=== PATIENT | female | born 1990 | race American Indian/Alaskan Native ===

== ENCOUNTER 2017-05-21 19:04 | Emergency (ER) | payer OTHER ==
[2017-05-21 23:07] LABS: Bilirubin,Urine NEG (Negative); Blood,Urine LG (Negative); Ketones,Urine NEG (Negative); Leukocyte Esterase,Urine SM (Negative); Mucus,Urine FEW /HPF; Nitrite,Urine NEG (Negative); Urobilinogen,Urine < 2.0 mg/dL (<2.0)
[2017-05-21 23:08] LABS: RBC,Urine > 182.0 /HPF (0.0-6.0)
[2017-05-22 00:06] VITALS: BP 122/70
[2017-05-22] MEDS ORDERED: ROCEPHIN IM ONE (02:11)
[2017-05-22] MEDS ORDERED: XYLOCAINE 1% MPF 5 mL INFILTRATI ONE (02:11)
[2017-05-22] MEDS ORDERED: ZITHROMAX PO ONE (02:11)
--- NOTE | 2017-05-22 02:17 | Emergency Department Report ---
ED Female HPI - General Chief complaint: Urogenital-Female Stated complaint: Pelvic pain Source: patient Mode of arrival: Ambulatory Limitations: No Limitations - History of Present Illness Initial comments: 26 year old female presents to ED with vaginal bleeding, vaginal discharge and pelvic pain x3-4 days. patient states she is sexually active with no protection and would like to be treated for G/C STD during ED visit today. patient is stable, neurologically intact and in no acute distress. MD Complaint: vaginal discharge, pelvic pain, possible STD -: Gradual, days(s) (4) Location: suprapubic Radiation: non-radiating Severity: mild Quality: sharp, burning Are you Now?: No Associated Symptoms: vaginal discharge, vaginal bleeding. denies: abdominal pain, nausea/vomiting, fever/chills, dysuria - Related Data Sexually active: Yes Previous Rx's Medication Instructions Recorded Last Taken Type Sulfamethoxazole/Trimethoprim 1 each PO BID #6 tablet 05/22/17 Unknown Rx [Bactrim DS TAB] metroNIDAZOLE [Flagyl] 500 mg PO Q12HR #14 tab 05/22/17 Unknown Rx Allergies Allergy/AdvReac Type Severity Reaction Status Date / Time No Known Allergies Allergy Unverified 05/21/17 19:29 ED Review of Systems ROS: Stated complaint: ABD PAIN Other details as noted in HPI Constitutional: denies: chills, fever Eyes: denies: eye pain, eye discharge, vision change ENT: denies: ear pain, throat pain Respiratory: denies: cough, shortness of breath, wheezing Cardiovascular: denies: chest pain, palpitations Endocrine: no symptoms reported Gastrointestinal: denies: abdominal pain, nausea, diarrhea Genitourinary: discharge, abnormal menses Musculoskeletal: denies: back pain, joint swelling, arthralgia Skin: denies: rash, lesions Neurological: denies: headache, weakness, numbness, paresthesias, confusion, abnormal gait, vertigo Psychiatric: denies: anxiety, depression Hematological/Lymphatic: denies: easy bleeding, easy bruising ED Past Medical Hx - Social History Smoking Status: Never Smoker Substance Use Type: Alcohol - Medications Home Medications: Home Medications Medication Instructions Recorded Confirmed Last Taken Type Sulfamethoxazole/Trimethoprim 1 each PO BID #6 tablet 05/22/17 Unknown Rx [Bactrim DS TAB] metroNIDAZOLE [Flagyl] 500 mg PO Q12HR #14 tab 05/22/17 Unknown Rx ED Physical Exam - General Limitations: No Limitations General appearance: alert, in no apparent distress - Head Head exam: Present: atraumatic, normocephalic - Eye Eye exam: Present: normal appearance - ENT ENT exam: Present: mucous membranes moist - Neck Neck exam: Present: normal inspection - Respiratory Respiratory exam: Present: normal lung sounds bilaterally. Absent: respiratory distress - Cardiovascular Cardiovascular Exam: Present: regular rate, normal rhythm. Absent: systolic murmur, diastolic murmur, rubs, gallop - GI/Abdominal GI/Abdominal exam: Present: soft, normal bowel sounds. Absent: distended, tenderness, guarding - External exam: Present: normal external exam Speculum exam: Present: vaginal discharge, vaginal bleeding - Extremities Exam Extremities exam: Present: normal inspection - Back Exam Back exam: Present: normal inspection, full ROM. Absent: tenderness - Neurological Exam Neurological exam: Present: alert, oriented X3, normal gait - Psychiatric Psychiatric exam: Present: normal affect, normal mood - Skin Skin exam: Present: warm, dry, intact, normal color. Absent: rash ED Course Vital Signs 05/21/17 05/21/17 05/22/17 19:19 19:26 00:05 Temperature 98.4 F 98.4 F 98.6 F Pulse Rate 100 H 100 H 84 Respiratory 18 18 16 Rate Blood Pressure 147/63 147/63 Blood Pressure 122/70 [Right] O2 Sat by Pulse 100 100 100 Oximetry ED Medical Decision Making - Lab Data Labs 05/21/17 22:52 Urine Color Yellow Urine Turbidity Clear Urine pH 5.0 Ur Specific [place] 1.028 Urine Protein 30 mg/dl Urine Glucose (UA) Neg Urine Ketones Neg Urine Blood Lg Urine Nitrite Neg Urine Bilirubin Neg Urine Urobilinogen < 2.0 Ur Leukocyte Esterase Sm Urine WBC (Auto) 22.0 H Urine RBC (Auto) > 182.0 U Epithel Cells (Auto) 31.0 H Urine Mucus Few Urine HCG, Qual Negative wet prep negative for BV or yeast. positive for Trich - Medical Decision Making 26 year old female presents to ED with pelvic pain, vaginal bleeding and vaginal discharge. patient will be treated for G/C at her request during ED visit. patient has urine positive for UTI and wet prep positive for trich. patient is stable, neurologically intact and in no acute distress. Critical care attestation.: If time is entered above; I have spent that time in minutes in the direct care of this critically ill patient, excluding procedure time. ED Disposition Clinical Impression: STD exposure, Trichomonas infection Disposition: - TO HOME OR SELFCARE Is pt being admited?: No Does the pt Need Aspirin: No Condition: Stable Instructions: Safe Sex (ED), Trichomoniasis (ED) Prescriptions: metroNIDAZOLE [Flagyl] 500 mg PO Q12HR #14 tab Sulfamethoxazole/Trimethoprim [Bactrim DS TAB] 1 each PO BID #6 tablet Referrals: PRIMARY CARE, [Primary Care Provider] - 2-3 Days Forms: Work/School Release Form(ED)
== END 2017-05-22 03:07 | disposition home or self-care (01) ==
LOC: ED 19:04
DX: A59.9 Trichomoniasis, unspecified (principal); Z20.2 Contact with and (suspected) exposure to infections with a predominantly sexual mode of transmission
CPT/HCPCS: 81001; 81025; 87210; 87591; 96372; 99284; J0696